=== PATIENT | female | born 1970 | race American Indian/Alaskan Native ===

== ENCOUNTER 2020-04-21 16:36 | Emergency (ER) | payer SELFPAY ==
[2020-04-21] MEDS ORDERED: ASPIRIN 325 MG TAB PO ONE (16:58)
--- NOTE | 2020-04-21 17:24 | XRay Report ---
CHEST 2 VIEWS INDICATION: Chest Pain. COMPARISON: No previous exam FINDINGS: Support devices: None. Heart: Within normal limits. Lungs: 3 cm nodule left suprahilar region with fullness left hilum. Pleura: No significant pleural effusion. No pneumothorax. Additional findings: None. IMPRESSION: 1. 3 cm nodular density left suprahilar region with fullness of the left hilum, recommend CT to exclu de echogenic carcinoma Signer Name: Tad Awan MD Signed: 04/21/2020 5:20 PM Workstation Name: [id number]
[2020-04-21 17:34] LABS: Basophils # (Auto) 0.1 K/mm3 (0.0-0.1); Basophils % (Auto) 1.9 % (0.0-1.8); Eosinophils % (Auto) 0.3 % (0.0-4.3); Lymphocytes # (Auto) 1.5 K/mm3 (1.2-5.4); Lymphocytes % (Auto) 22.9 % (13.4-35.0); Mean Corpuscular HGB Conc 33 % (30-34); Mean Corpuscular Volume 96 fl (79-97); Monocytes # (Auto) 0.8 K/mm3 (0.0-0.8); Monocytes % (Auto) 11.4 % (0.0-7.3); Platelet Count 404 K/mm3 (140-440)
[2020-04-21 17:35] LABS: Blood Urea Nitrogen 10 mg/dL (7-17); Calcium 9.7 mg/dL (8.4-10.2); Hemolysis Index 8
[2020-04-21 17:37] LABS: BUN/Creatinine Ratio 14
--- NOTE | 2020-04-21 22:00 | Emergency Department Report ---
ED Chest Pain HPI - General Chief Complaint: Chest Pain Stated Complaint: CHEST PAIN Time Seen by Provider: 04/21/20 21:47 Source: patient Mode of arrival: Ambulatory Limitations: No Limitations - History of Present Illness Initial Comments: This is a 49-year-old -[place] female presents to the emergency department with complaint of some midsternal to left-sided chest pain that has been going on intermittently since last night. Last night the patient says that she had sharp pains to this area of her chest with some tingling going down the upper portion of her left arm. She took 2 Tylenol and was able to fall asleep. When she woke up this morning it was more of a dull ache but the intensity had decreased. Later today, while at work, the patient once again had more intense sharp pains. Currently the chest pain is still there but once again has become more dull. No known aggravating or alleviating factors. She denies any fever, shortness of breath, nausea, vomiting or diaphoresis. Patient has an occasional cough and says that that will also exacerbate the chest discomfort. She denies any past medical history. She is a tobacco smoker. The patient lives up in [place] and is currently working here through April 29. She has primary care follow-up in [place]. - Related Data Allergies Allergy/AdvReac Type Severity Reaction Status Date / Time Penicillins Allergy Hives Verified 04/21/20 16:55 Heart Score - HEART Score History: Slightly suspicious EKG: Normal Age: 45-65 Risk factors: 1-2 risk factors Troponin: < normal limit HEART Score: 2 - Critical Actions Critical Actions: 0-3 pts:0.9-1.7%risk of adverse cardiac event.Candidate for luba song ED Review of Systems ROS: Stated complaint: CHEST PAIN Other details as noted in HPI Comment: All other systems reviewed and negative Constitutional: denies: chills, fever Eyes: denies: eye pain, vision change ENT: denies: ear pain, throat pain Respiratory: cough. denies: shortness of breath Cardiovascular: chest pain. denies: palpitations Gastrointestinal: denies: abdominal pain, vomiting Genitourinary: denies: dysuria, discharge Musculoskeletal: denies: back pain, arthralgia Skin: denies: rash, lesions Neurological: paresthesias. denies: headache, numbness ED Past Medical Hx - Past Medical History Previous Medical History?: No - Surgical History Additional Surgical History: PARTIAL HYSTO - Social History Smoking Status: Current Every Day Smoker Substance Use Type: Alcohol, Marijuana ED Physical Exam - General Limitations: No Limitations - Other Other exam information: GENERAL: The patient is well-developed well-nourished. HENT: Normocephalic. Atraumatic. Patient has moist mucous membranes. EYES: Extraocular motions are intact. NECK: Supple. Trachea is midline. CHEST/LUNGS: Clear to auscultation. There is no respiratory distress noted. HEART/CARDIOVASCULAR: Regular. There is no tachycardia. There is no murmur. ABDOMEN: Abdomen is soft, nontender. Patient has normal bowel sounds. There is no abdominal distention. SKIN: Skin is warm and dry. NEURO: The patient is awake, alert, and oriented. The patient is cooperative. The patient has no focal neurologic deficits. Normal speech. MUSCULOSKELETAL: There is no tenderness or deformity. There is no limitation range of motion. ED Course Vital Signs 04/21/20 04/21/20 04/21/20 16:54 21:46 22:00 Temperature 98.2 F Pulse Rate 93 H 81 Respiratory 16 16 Rate Blood Pressure 143/95 124/85 O2 Sat by Pulse 95 96 98 Oximetry 04/21/20 04/21/20 04/21/20 22:28 22:30 22:45 Temperature Pulse Rate Respiratory Rate Blood Pressure 124/85 124/85 125/87 O2 Sat by Pulse 96 100 99 Oximetry 04/21/20 23:00 Temperature Pulse Rate Respiratory Rate Blood Pressure 124/92 O2 Sat by Pulse 99 Oximetry CAMILLE score - Camille Score Age > 65: (0) No Aspirin use within the Past 7 Days: (0) No 3 or more CAD Risk Factors: (0) No 2 or more Angina events in past 24 hrs: (1) Yes Known CAD with more than 50% Stenosis: (0) No Elevated Cardiac Markers: (0) No ST Deviation Greater than 0.5mm: (0) No CAMILLE Score: 1 ED Medical Decision Making - Lab Data Result diagrams: 04/21/20 17:01 04/21/20 17:01 - EKG Data -: EKG Interpreted by Ms EKG shows normal: sinus rhythm, axis, intervals, QRS complexes, ST-T waves Rate: normal - EKG Data When compared to previous EKG there are: previous EKG unavailable Interpretation: normal EKG - Radiology Data Radiology results: report reviewed CHEST 2 VIEWS INDICATION: Chest Pain. COMPARISON: No previous exam FINDINGS: Support devices: None. Heart: Within normal limits. Lungs: 3 cm nodule left suprahilar region with fullness left hilum. Pleura: No significant pleural effusion. No pneumothorax. Additional findings: None. IMPRESSION: 1. 3 cm nodular density left suprahilar region with fullness of the left hilum, recommend CT to exclude echogenic carcinoma CTA CHEST WITH IV CONTRAST INDICATION: Chest pain, nodule seen on CXR CONTRAST: 100 cc Omnipaque 350 IV COMPARISON: Chest x-ray tonight Three-plane MIP reconstructions were produced. All CT scans at this location are performed using CT dose reduction for ALARA by means of automated exposure control. FINDINGS: No significant axillary or chest wall abnormalities are seen. Visualized portions of the upper abdomen show no significant abnormalities. No adrenal lesions are seen. No pleural effusions are seen. No pneumothorax or pneumomediastinum are seen. No obvious endobronchial lesions are noted. Chronic changes are seen in the lung oquendo with emphysematous changes noted, mostly in the upper lobes. Mild diffuse increase in interstitial markings are seen which are of unclear chronicity. Moderate left and mild right basilar atelectatic changes are noted. In the anterior aspect of the left upper lobe a large spiculated mass is seen. This corresponds to the lesion on chest x-ray. This ma ss measures 3.8 cm in greatest diameter excluding small extensions. Extensions are seen anteriorly to the pleural surface. The lesion is only approximately 2 mm from the mediastinal surface medially but is only in contact and a small extension superiorly. Prominent left hilar mass/adenopathy is seen. There is also prominent tumor in the left aspect of the superior mediastinum extending inferiorly to the aortopulmonary window. No fat planes are seen between this tissue and the aorta and proximal portions of all 3 of the major aortic branches. Pulmonary artery also is in direct contact with both the main pulmonary artery and the left pulmonary artery and multiple branches. Branches are seen extending through the tumor in the left hilum with mild narrowing seen. No other nodules or masses are seen on the left. However, in the posterior aspect of the right upper lobe near the pleural surface and irregular soft tissue nodule is seen measuring 8 mm without calcification. An area of pleural parenchymal density in the medial aspect of the right apex probably is a scar. No right hilar masses are obvious though there could be a small node visible on the right hilum. Aorta shows no aneurysmal dilatation or evidence of dissection. Good opacification of the pulmonary arterial system was achieved. I do not see evidence of pulmonary thromboembolism. IMPRESSION: 1. No evidence of pulmonary thromboembolism 2. The mass density on chest x-ray is shown to be a spiculated mass in the anterior aspect of the left upper lobe. This shows connection to the anterior pleural surface without definite invasion and slight connection medially to the mediastinal surface. Prominent tumor involvement of the left hilum and mediastinum are seen. 3. 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 No other evidence of metastatic disease is visible. - Medical Decision Making This patient presents to the emergency department with a complaint of some midsternal left-sided chest pain that has been going on since Sunday. It seems to start off sharper in nature and then moves to a dull ache. An EKG was performed and it did not show any morphology consistent with ST elevation myocardial infarction or any dysrhythmia. A chest x-ray was read by radiology as showing a 3 cm left suprahilar nodule with some perihilar fullness and they recommended a CT to be performed. CT angiography of the chest was done and it does not show any evidence of any pulmonary embolism, but there is a large left upper lobe spiculated mass that is abutting or connected to the pleura without any evidence of intrusion into the mediastinal surface. There is also a soft tissue nodule of the right lung that could be concerning for intrathoracic metastasis. No pneumonia, pleural effusions or pneumothorax seen. The patient's labs have been mostly unremarkable including CBC, metabolic panel and negative troponins x3. Her vital signs have been reassuring throughout her ED course including being afebrile. The patient is low on the heart and CAMILLE score. I discussed the lab and imaging findings with the patient, especially the CT results showing the spiculated mass with concern for possible malignancy. The patient lives in [place] and has a primary care physician, whom she follows with, located there. She is returning to [place] on April 29. The patient will decide for herself whether or not she wants to return early back home, but I have at least suggested that the patient contact her PCP to let them know regarding the findings of her left upper lobe mass. In the meantime, if the patient does not return home until April 29, she has been instructed to go to the closest emergency department with any increased chest pain, development of shortness of breath, worsening of any of her symptoms, or with any acute distress. Critical Care Time: No Critical care attestation.: If time is entered above; I have spent that time in minutes in the direct care of this critically ill patient, excluding procedure time. ED Disposition Clinical Impression: Mass of upper lobe of left lung, Atypical chest pain, Tobacco use Disposition: TO HOME OR SELFCARE Is pt being admited?: No Condition: Stable Instructions: Lung Mass, Nonspecific Chest Pain, Adult, Chest Pain (ED) Additional Instructions: Please follow-up with your primary care physician as soon as you are able to do so. Please make them aware of the CT scan findings of the chest, especially the left upper lobe mass found. Return to the closest emergency department with any worsening of your symptoms, development of shortness of breath, new or concerning symptoms not addressed during this emergency department visit, or with any acute distress. Please try and quit smoking. Referrals: DELFINA MENDEZ [Other] - 3-5 Days PCP, Your [Other] - 2-3 Days Time of Disposition: 23:15
--- NOTE | 2020-04-21 23:00 | Cat Scan Report ---
CTA CHEST WITH IV CONTRAST INDICATION: Chest pain, nodule seen on CXR CONTRAST: 100 cc Omnipaque 350 IV COMPARISON: Chest x-ray tonight Three-plane MIP reconstructions were produced. All CT scans at this location are performed using CT d ose reduction for ALARA by means of automated exposure control. FINDINGS: No significant axillary or chest wall abnormalities are seen. Visualized portions of the up per abdomen show no significant abnormalities. No adrenal lesions are seen. No pleural effusions are seen. No pneumothorax or pneumomediastinum are seen. No obvious endobronchial lesions are noted. Chronic changes are seen in the lung oquendo with emphysematous changes noted, mostly in the upper lob es. Mild diffuse increase in interstitial markings are seen which are of unclear chronicity. Moderate left and mild right basilar atelectatic changes are noted. In the anterior aspect of the left upper lobe a large spiculated mass is seen. This corresponds to th e lesion on chest x-ray. This mass measures 3.8 cm in greatest diameter excluding small extensions. E xtensions are seen anteriorly to the pleural surface. The lesion is only approximately 2 mm from the mediastinal surface medially but is only in contact and a small extension superiorly. Prominent left hilar mass/adenopathy is seen. There is also prominent tumor in the left aspect of the superior media stinum extending inferiorly to the aortopulmonary window. No fat planes are seen between this tissue and the aorta and proximal portions of all 3 of the major aortic branches. Pulmonary artery also is i n direct contact with both the main pulmonary artery and the left pulmonary artery and multiple branc hes. Branches are seen extending through the tumor in the left hilum with mild narrowing seen. No other nodules or masses are seen on the left. However, in the posterior aspect of the right upper lobe near the pleural surface and irregular soft tissue nodule is seen measuring 8 mm without calcifi cation. An area of pleural parenchymal density in the medial aspect of the right apex probably is a s car. No right hilar masses are obvious though there could be a small node visible on the right hilum. Aorta shows no aneurysmal dilatation or evidence of dissection. Good opacification of the pulmonary arterial system was achieved. I do not see evidence of pulmonary thromboembolism. IMPRESSION: 1. No evidence of pulmonary thromboembolism 2. The mass density on chest x-ray is shown to be a spiculated mass in the anterior aspect of the lef t upper lobe. This shows connection to the anterior pleural surface without definite invasion and sli ght connection medially to the mediastinal surface. Prominent tumor involvement of the left hilum and mediastinum are seen. 3. 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 No other evidence of metastatic disease is visible. 5. Bibasilar atelectatic changes are seen, more on the left. Would be difficult to exclude mild pneum onitis in the left lower lobe. Signer Name: Elvis De León MD Signed: 04/21/2020 10:56 PM Workstation Name: [id number]
[2020-04-21 23:54] VITALS: BP 124/92
== END 2020-04-21 23:54 | disposition home or self-care (01) ==
LOC: ED 16:36
DX: R07.89 Other chest pain (principal); R91.8 Other nonspecific abnormal finding of lung field; F17.200 Nicotine dependence, unspecified, uncomplicated; F12.90 Cannabis use, unspecified, uncomplicated; Z88.0 Allergy status to penicillin; Z90.710 Acquired absence of both cervix and uterus
CPT/HCPCS: 36415; 71046; 71275; 80048; 84484; 85025; 93005; 99285; Q9967